=== PATIENT | female | born 1970 | race Caucasian/White ===

== ENCOUNTER 2016-07-03 09:49 | Emergency (ER) | payer MEDICAID, OTHER ==
[~2016-07-03] VITALS: Ht 152.4 cm; Wt 93.2 kg
[2016-07-03 09:55] VITALS: Ht 152.4 cm; Wt 93.2 kg
[2016-07-03] MEDS ORDERED: ACETAMINOPHEN 325 MG TAB PO ONE (11:00)
[2016-07-03 11:05] LABS: ADD SCAN DIFF NO
[2016-07-03 11:08] LABS: BASOPHILS % 0.4 % (0.0-2.0); EOSINOPHILS # 0.1 10^3/ul (0.0-0.5); EOSINOPHILS % 1.1 % (0.0-7.0); HEMATOCRIT 38.8 % (37.0-47.0); HEMOGLOBIN 12.1 g/dl (12.0-16.0); LYMPHOCYTES # 1.9 10^3/ul (0.8-2.9); LYMPHOCYTES % 22.9 % (15.0-51.0); MEAN CORPUSCULAR HEMOGLOBIN 25.9 pg (29.0-33.0); MEAN CORPUSCULAR HGB CONC 31.2 g/dl (32.0-37.0); MEAN CORPUSCULAR VOLUME 82.9 fl (82.0-101.0); MEAN PLATELET VOLUME 9.6 fl (7.4-10.4); MONOCYTE # 0.4 10^3/ul (0.3-0.9); MONOCYTES % 5.3 % (0.0-11.0); NEUTROPHIL # 5.8 10^3/ul (1.6-7.5); NEUTROPHILS % 70.1 % (39.0-77.0); PLATELET COUNT 366 10^3/UL (140-415); RED BLOOD COUNT 4.68 10^6/ul (4.20-5.40); RED CELL DISTRIBUTION WIDTH 14.2 % (11.5-14.5); WHITE BLOOD COUNT 8.3 10^3/ul (4.8-10.8)
[2016-07-03 11:09] LABS: ADD UMIC YES; URINE BILIRUBIN (Dip) NEGATIVE (NEGATIVE); URINE BLOOD (Dip) NEGATIVE (NEGATIVE); URINE COLOR LT. YELLOW (YELLOW); URINE GLUCOSE (Dip) NEGATIVE (NEGATIVE); URINE KETONES (Dip) NEGATIVE (NEGATIVE); URINE LEUKOCYTE ESTERASE (Dip) 1+ (NEGATIVE); URINE NITRITE (Dip) NEGATIVE (NEGATIVE); URINE TOTAL PROTEIN (Dip) NEGATIVE (NEGATIVE); URINE UROBILINOGEN (Dip) 0.2 E.U./dL (0.1-1.0)
--- NOTE | 2016-07-03 11:11 | RADRPT ---
PROCEDURE: XR Chest. CLINICAL INDICATION: Chest pain TECHNIQUE: Single view of the chest COMPARISON: No prior study is available for comparison. FINDINGS: The lungs are clear. The heart size is normal. There is no pleural effusion. There is no pneumothorax. There is no acute osseous abnormality. IMPRESSION: 1. No acute cardiopulmonary findings. RPTAT: UU .Marcelino Causey MD, MD Date Time Electronically viewed and signed by .Marcelino Causey MD, on 07/03/2016 11:11 .K/
[2016-07-03 11:19] LABS: BACTERIA,URINE FEW; SQUAMOUS EPITHELIAL CELL,UR FEW; URINE RBCS NONE SEEN /HPF (0)
[2016-07-03 11:23] LABS: ALBUMIN 4.4 g/dl (3.3-4.9); POTASSIUM 3.9 mmol/L (3.5-5.1)
[2016-07-03 11:25] LABS: BILIRUBIN,INDIRECT 0.2 mg/dl (0-1.1); BILIRUBIN,TOTAL 0.2 mg/dl (0.2-1.3); CREATININE 0.61 mg/dl (0.44-1.00)
[2016-07-03 11:26] LABS: ALBUMIN/GLOBULIN RATIO 1.04; TOTAL PROTEIN 8.6 g/dl (6.1-8.1)
--- NOTE | 2016-07-03 12:57 | RADRPT ---
PROCEDURE: US Abdomen (right upper quadrant). CLINICAL INDICATION: Right upper quadrant abdomen pain. TECHNIQUE: Multiple real-time longitudinal and transverse images of the right upper quadrant of th e abdomen were acquired utilizing a curved array transducer. Images were reviewed on a high-resoluti on PACS workstation. COMPARISON: None FINDINGS: The liver is normal in size and echogenicity. There is no focal hepatic lesion. The gallbladder is normal with no stones or wall thickening. There is no pericholecystic fluid savannah ection. The bile ducts are normal with the common bile duct measuring 2.4 mm in diameter. The visualized portions of the pancreas are unremarkable with obscuration of the tail of the pancrea s. No free fluid is present. The right kidney measures 10.5 x 3.8 x 6.1 cm. There is normal echogenicity of the right kidney. There is no perinephric fluid collection. No hydronephrosis, mass, or calculus is seen. IMPRESSION: 1. Unremarkable right upper quadrant abdomen ultrasound. RPTAT: QQ .Edi Hall MD, Date Time Electronically viewed and signed by .Edi Hall MD, on 07/03/2016 12:57 .R/
[2016-07-03] MEDS ORDERED: IBUP-1542 PO (13:18)
--- NOTE | 2016-07-03 13:22 | ERD ---
ER Documentation Chief Complaint Date/Time DATE: 07/03/16 TIME: 13:19 Chief Complaint Body numbness X 20 years , Right CWP X 4 days, denies fevers. HPI This 46-year-old female complains of right upper quadrant abdominal pain for last 4 days. Denies fevers, vomiting, urinary complaints. She has not been seen for this before. She denies this medical conditions. Patient has a additional complaint of sensation of body numbness for 20 years. Patient has restricted range of motion weakness. ROS All systems reviewed and are negative except as per history of present illness. Medications Home Meds Active Scripts Ibuprofen* (Motrin*) 600 Mg Tab, 600 MG PO Q6, #20 TAB Prov:ERMELINDA JIMENEZ MD 07/03/16 PMhx/Soc Medical and Surgical Hx: pt denies Medical Hx, pt denies Surgical Hx Hx Alcohol Use: No Hx Substance Use: No Hx Tobacco Use: No Smoking Status: Never smoker Physical Exam Vitals Vital Signs Date Time Temp Pulse Resp B/P Pulse Ox O2 Delivery O2 Flow Rate FiO2 07/03/16 09:55 98.5 81 18 163/72 99 Physical Exam Const: [] Head: Atraumatic Eyes: Normal Conjunctiva ENT: Normal External Ears, Nose and Mouth. Neck: Full range of motion..~ No meningismus. Resp: Clear to auscultation bilaterally Cardio: Regular rate and rhythm, no murmurs Abd: Soft, non tender, non distended. Normal bowel sounds Skin: No petechiae or rashes Back: No midline or flank tenderness Ext: No cyanosis, or edema Neur: Awake and alert Psych: Normal Mood and Affect Result Diagram: 07/03/16 1100 07/03/16 1100 Results 24 hrs Laboratory Tests Test 07/03/16 11:00 Alanine Aminotransferase (ALT/SGPT) 22IU/L Albumin 4.4g/dl Albumin/Globulin Ratio 1.04 Alkaline Phosphatase 132IU/L Anion Gap 19 Aspartate Amino Transf (AST/SGOT) 23IU/L Basophils # 0.010^3/ul Basophils % 0.4% Blood Urea Nitrogen 11mg/dl Calcium Level 9.0mg/dl Carbon Dioxide Level 29mmol/L Chloride Level 101mmol/L Creatinine 0.61mg/dl Direct Bilirubin 0.00mg/dl Eosinophils # 0.110^3/ul Eosinophils % 1.1% Globulin 4.20g/dl Glucose Level 119mg/dl Hematocrit 38.8% Hemoglobin 12.1g/dl Indirect Bilirubin 0.2mg/dl Lipase 213U/L Lymphocytes # 1.910^3/ul Lymphocytes % 22.9% Mean Corpuscular Hemoglobin 25.9pg Mean Corpuscular Hemoglobin Concent 31.2g/dl Mean Corpuscular Volume 82.9fl Mean Platelet Volume 9.6fl Monocytes # 0.410^3/ul Monocytes % 5.3% Neutrophils # 5.810^3/ul Neutrophils % 70.1% Nucleated Red Blood Cells # 0.010^3/ul Nucleated Red Blood Cells % 0.0/100WBC Platelet Count 29005^3/UL Potassium Level 3.9mmol/L Red Blood Count 4.6810^6/ul Red Cell Distribution Width 14.2% Sodium Level 145mmol/L Total Bilirubin 0.2mg/dl Total Protein 8.6g/dl Urine Bacteria FEW Urine Bilirubin NEGATIVE Urine Clarity CLEAR Urine Color LT. YELLOW Urine Glucose NEGATIVE% Urine Hemoglobin NEGATIVE Urine Ketones NEGATIVE Urine Leukocyte Esterase 1+ Urine Microscopic RBC NONE SEEN/HPF Urine Microscopic WBC 2-5/HPF Urine Nitrite NEGATIVE Urine Specific [place] 1.015 Urine Squamous Epithelial Cells FEW Urine Total Protein NEGATIVE Urine Urobilinogen 0.2 E.U./dL Urine pH 6.0 White Blood Count 8.310^3/ul Current Medications Medications (Trade) Dose Ordered Sig/William Route PRN Reason Start Time Stop Time Status Last Admin Dose Admin Acetaminophen (Tylenol Tab) 650 mg ONCE ONCE PO 07/03/16 11:00 07/03/16 11:01 DC 07/03/16 10:54 Procedures/MDM Patient presents with multiple symptoms of uncertain etiology. She does have right upper quadrant abdominal pain was evaluated for this with laboratory and ultrasound. CBC and CMP and lipase showed no acute abnormalities, urine shows leukocytes but few bacteria. HCG is negative. Right upper quadrant ultrasound read as normal by the radiologist. Chest X-ray 1V Interpreted by me: Soft Tissue: No acute abnormalities Bones: No acute abnormalities Mediastinum/Cardiac Silhouette/Lungs: [No acute abnormalities]. Impression- normal 1 view chest Patient was given Tylenol for pain. Patient presents with multiple complaints including right upper quadrant abdominal pain without signs or symptoms of hepatobiliary disease, signs or symptoms to suggest pulmonary embolism, acute coronary syndrome, pneumonia, acute abdomen. She will treated with ibuprofen and further observation at home. The patient was stable with no new complaints during the ER course. Clinically, there is no current evidence to suggest meningitis, sepsis, acute abdomen, pneumonia, acute coronary syndrome, pulmonary embolism, or any other emergent condition appearing to require further evaluation or hospitalization. The patient should certainly return for any new or worsening symptoms per the aftercare instructions. They should otherwise follow-up with her primary care doctor for reevaluation this week. Departure Diagnosis: Primary Impression: Abdominal pain Abdominal location: right upper quadrant Qualified Code: R10.11 - Right upper quadrant abdominal pain Condition: Stable Patient Instructions: Abdominal Pain, Symptoms With Uncertain Cause Referrals: [facility] [place] se faria hecho un examen mdico de control que le indica que no est en don condicin que requiera tratamiento urgente en el Departamento de Emergencia. Un estudio ms profundo y el tratamiento de garcia condicin pueden esperar sin ningn riesgo hasta que usted sea atendida/o en el consultorio de garcia mdico o don cl ella. Es responsabilidad suya arreglar don jac para el seguimiento del tanisha. MANEJO DE CONDICIONES NO URGENTES EN EL FUTURO 1) Si usted tiene un mdico de atencin primaria: ted debera llamar a garcia mdico de atencin primaria antes de venir al departamento de emergencia. Despus de las horas de consultorio, garcia doctor o garcia asociado/a est disponible por telfono. El mdico o enfermero de tawanda en el servicio telefnico puede asesorarle por marky medio para atender el problema, o tanisha contrario se puede programar don jac. 2) Si usted no tiene un mdico de atencin primaria: Llame al mdico o clnica de referencia que aparece abajo courtney las horas de consultorio para hacer don jac para que le vean. CLINICAS: [facility] [phone] [facility] [phone] [facility] [phone] [place] [id number] [phone] [place] [id number] [phone] [facility] [phone] [address] Additional Instructions: Examines normal hoy. Cheque otro vez con garcia doctor primario en el proximo calixto or regresa para mas o nueva simptomas. ERMELINDA JIMENEZ MD Jul 03, 2016 13:22
== END 2016-07-03 13:40 | disposition home or self-care (01) ==
LOC: FTE 09:49
DX: R10.11 Right upper quadrant pain (principal)
CPT/HCPCS: 71010; 76705; 80053; 81001; 83690; 85025; Z7502; Z7610; 81003

== ENCOUNTER 2017-07-11 15:36 | Emergency (ER) | END 2017-07-11 16:47 | disposition left against medical advice (07) ==

== ENCOUNTER 2017-07-11 18:29 | Emergency (ER) | END 2017-07-11 19:34 | disposition home or self-care (01) ==